=== PATIENT | male | born 1955 | race Caucasian/White ===

== ENCOUNTER 2017-04-12 08:41 | Day surgery (SDC) | payer MEDICARE, BC ==
[~2017-04-12] VITALS: Ht 172.7 cm; Wt 93.3 kg
[2017-04-12 09:33] VITALS: Ht 172.7 cm; Wt 93.3 kg
[2017-04-12] MEDS ORDERED: LISI40TA9 PO (09:40)
[2017-04-12] MEDS ORDERED: FURO40TA4 PO (09:40)
[2017-04-12] MEDS ORDERED: AMLO-147 PO (09:40)
[2017-04-12] MEDS ORDERED: METF500T4 PO (09:40)
[2017-04-12] MEDS ORDERED: HYDR-3672 PO (09:40)
[2017-04-12] MEDS ORDERED: GLIP5TAB13 PO (09:40)
[2017-04-12] MEDS ORDERED: METO100T13 PO (09:40)
[2017-04-12] MEDS ORDERED: ATOR20TA38 PO (09:40)
[2017-04-12] MEDS ORDERED: ISOS30TA18 PO (09:40)
[2017-04-12 09:53] VITALS: BP 158/81; PULSE 59; RESP 16
[2017-04-12 10:38] VITALS: BP 124/70; PULSE 53; RESP 15
--- NOTE | 2017-04-12 11:21 | GILP ---
DATE OF PROCEDURE: PROCEDURE PERFORMED: Colonoscopy with biopsy. INDICATION: A 61-year-old male undergoing this procedure for severe constipation and colon cancer s creening. Also strong family history of colon cancer. The risks of the procedure, related and unre lated complications, anesthetic risks, alternatives discussed and informed consent was obtained. DESCRIPTION OF PROCEDURE: The patient was brought to the GI lab, sedated by the anesthesiologist. After appropriate sedation, scope was passed with much ease into rectum and advanced through unprepa red colon all the way into the cecum. Cecum was full of stool. In the ascending colon, a 1 cm flat polyp was identified, successfully removed by jumbo biopsy forceps. The rest of the colon was norm al. While coming out, mucosa thoroughly inspected. No gross lesion was identified. IMPRESSION: 1. Normal findings all the way into cecum. 2. Polyp in the ascending colon successfully removed by jumbo biopsy forceps. 3. Poor prep. PLAN: The patient needs to repeat colonoscopy in 1 or 2 years because of the poor prep. He is to st on high fiber diet or Amitiza or Trulance. Dictated By: MONICA RAMÍREZ/MARISSA Conf#: [id number] DID#: [id number]
--- NOTE | 2017-04-12 11:43 | GILP ---
DATE OF PROCEDURE: PROCEDURE PERFORMED: Colonoscopy with biopsy. INDICATION: A 61-year-old male undergoing this procedure for colon cancer screening. He has a stro ng family history of colon cancer. INFORMED CONSENT: The risk of the procedure, related and unrelated complications, anesthetic risks, alternatives discussed. Informed consent was obtained. DESCRIPTION OF PROCEDURE: The patient was brought to the GI lab, sedated by the anesthesiologist. After optimal sedation, the scope was passed with much ease into the rectum. There was a semi-solid stool. Scope was advanced all the way into the cecum, and throughout the colon he had a semi-solid stool. Preparation was poor. There was a polyp identified in the ascending colon, flat, 1 cm in d iameter, successfully removed in toto by jumbo biopsy forceps. The rest of the colon was thoroughly inspected. No gross lesion was identified. Again, the prep was poor and a small tumor or polyp ca n be missed. IMPRESSION: 1. Polyp in the ascending colon, successfully removed. 2. Poor prep. PLAN: 1. The patient is to stay on high fiber diet with some kind laxative, Trulance or Amitiza. 2. He needs a repeat colonoscopy in 1 or 2 years because of the poor prep. Dictated By: MONICA RAMÍREZ/MARISSA Conf#: [id number] DID#: [id number]
== END 2017-04-12 16:39 | disposition home or self-care (01) ==
LOC: GIL 08:41
PROVIDERS: ATTEND Internal Medicine Gastroenterology
DX: Z12.11 Encounter for screening for malignant neoplasm of colon (principal); D12.2 Benign neoplasm of ascending colon; I10 Essential (primary) hypertension; E11.9 Type 2 diabetes mellitus without complications; E78.5 Hyperlipidemia, unspecified; I48.91 Unspecified atrial fibrillation
CPT/HCPCS: 82962; 88305